=== PATIENT | male | born 1955 | race Caucasian/White ===

== ENCOUNTER → 2017-04-20 | Outpatient (CLI) | payer OTHER ==
[~2017-04-20] MED LIST: AMLO10TA4 PO; AMOX1TAB64 PO; ATOR40TA78 PO; HYDR25TA6 PO; LOSA100T6 PO; METO50TA82 PO; NICO-487 TD; OXYC5TAB3 PO; POLY17PO5 PO; SULF1TAB24 PO
== END | disposition home or self-care (01) ==
LOC: CFH 07:53
PROVIDERS: ATTEND Podiatrist Foot & Ankle Surgery
DX: M19.072 Primary osteoarthritis, left ankle and foot (principal)

== ENCOUNTER 2017-04-26 12:43 | Emergency (ER) | payer OTHER ==
[~2017-04-26] VITALS: Ht 188 cm; Wt 106.5 kg
[2017-04-26 13:26] LABS: BASOPHILS # (AUTO) 0.04 x10^3/uL (0-0.1); BASOPHILS % (AUTO) 1 % (0-1); EOSINOPHILS # (AUTO) 0.36 x10^3/uL (0-0.4); EOSINOPHILS % (AUTO) 5 % (1-7); LYMPHOCYTES % (AUTO) 30 % (22-44); MD NO; MEAN CORPUSCULAR HEMOGLOBIN 33.7 pg (27.5-34.5); MEAN CORPUSCULAR HGB CONC 34.6 g/dL (33.2-36.2); MEAN CORPUSCULAR VOLUME 97.4 fL (81-97); MEAN PLATELET VOLUME 9.9 fL (7.4-10.4); MONOCYTES # (AUTO) 0.86 x10^3/uL (0.2-0.8); MONOCYTES % (AUTO) 12 % (2-9); NEUTROPHILS # (AUTO) 3.89 x10^3/uL (1.8-6.8); NEUTROPHILS % (AUTO) 53 % (42-75); PLATELET COUNT 169 x10^3/uL (130-400); RED BLOOD COUNT 5.66 x10^6/uL (4.38-5.82)
[2017-04-26] MEDS ORDERED: SODIUM CHLORIDE FLUSH 10ML SYR IVF ONE (13:30)
[2017-04-26 13:39] LABS: ALBUMIN 3.6 g/dL (3.4-5.0); ANION GAP 5 mmol/L (5-15); CALCIUM 8.1 mg/dL (8.5-10.1); CHLORIDE 109 mmol/L (98-107)
[2017-04-26 13:53] LABS: ALANINE AMINOTRANSFERASE 68 U/L (12-78); ALKALINE PHOSPHATASE 115 U/L (45-117); BILIRUBIN,TOTAL 0.9 mg/dL (0.2-1.0); TOTAL PROTEIN 7.4 g/dL (6.4-8.2)
[2017-04-26 13:59] LABS: CREATININE 0.92 mg/dL (0.7-1.3)
[2017-04-26 14:35] VITALS: BP 144/76
== END 2017-04-26 15:36 | disposition home or self-care (01) ==
LOC: ED 15:31
DX: I10 Essential (primary) hypertension (principal); E78.5 Hyperlipidemia, unspecified; E11.9 Type 2 diabetes mellitus without complications
CPT/HCPCS: 36415; 80053; 85025; 93005; 99285

== ENCOUNTER → 2017-07-20 | Outpatient (CLI) | payer OTHER | END | disposition home or self-care (01) | LOC: CVU 11:39 | PROVIDERS: ATTEND Nurse Practitioner Family | DX: I37.1 Nonrheumatic pulmonary valve insufficiency (principal); I35.8 Other nonrheumatic aortic valve disorders; I10 Essential (primary) hypertension; I25.2 Old myocardial infarction; Z85.3 Personal history of malignant neoplasm of breast | CPT/HCPCS: 93306 ==

== ENCOUNTER → 2017-09-30 | Outpatient (CLI) | payer OTHER ==
[~2017-09-30] MED LIST changes: +REGADENOSON 0.4 MG/5 ML SYRINGE ONE
== END | disposition home or self-care (01) ==
LOC: CFH 07:32
PROVIDERS: ATTEND Nurse Practitioner Family
DX: I25.10 Atherosclerotic heart disease of native coronary artery without angina pectoris (principal); I25.9 Chronic ischemic heart disease, unspecified
CPT/HCPCS: 78452; 93017; A9502; J2785

== ENCOUNTER → 2017-10-30 | Outpatient (CLI) | payer OTHER ==
[~2017-10-30] MED LIST changes: +DOXA4TAB3 PO; -REGADENOSON 0.4 MG/5 ML SYRINGE ONE; +VALS320T2 PO
[2017-10-30 11:38] LABS: BASOPHILS # (AUTO) 0.04 x10^3/uL (0-0.1); BASOPHILS % (AUTO) 1 % (0-1); EOSINOPHILS # (AUTO) 0.31 x10^3/uL (0-0.4); EOSINOPHILS % (AUTO) 4 % (1-7); LYMPHOCYTES # (AUTO) 1.58 x10^3/uL (1-3.4); LYMPHOCYTES % (AUTO) 22 % (22-44); MD NO; MEAN CORPUSCULAR HEMOGLOBIN 34.2 pg (27.5-34.5); MEAN CORPUSCULAR HGB CONC 34.9 g/dL (33.2-36.2); MEAN PLATELET VOLUME 9.9 fL (7.4-10.4); MONOCYTES # (AUTO) 0.76 x10^3/uL (0.2-0.8); MONOCYTES % (AUTO) 11 % (2-9); NEUTROPHILS # (AUTO) 4.51 x10^3/uL (1.8-6.8); NEUTROPHILS % (AUTO) 63 % (42-75); PLATELET COUNT 139 x10^3/uL (130-400); RED BLOOD COUNT 5.37 x10^6/uL (4.38-5.82); RED CELL DISTRIBUTION WIDTH 13.4 % (9.4-14.8)
[2017-10-30 12:23] LABS: CHLORIDE 107 mmol/L (98-107)
[2017-10-30 12:30] LABS: ALANINE AMINOTRANSFERASE 60 U/L (12-78); ALBUMIN 3.9 g/dL (3.4-5.0); ALKALINE PHOSPHATASE 93 U/L (45-117); ANION GAP 7 mmol/L (5-15); BILIRUBIN,TOTAL 1.2 mg/dL (0.2-1.0); CALCIUM 9.1 mg/dL (8.5-10.1); CREATININE 0.85 mg/dL (0.7-1.3); TOTAL PROTEIN 7.8 g/dL (6.4-8.2)
== END | disposition home or self-care (01) ==
LOC: STAR 10:37
PROVIDERS: ATTEND Internal Medicine Cardiovascular Disease
DX: Z01.818 Encounter for other preprocedural examination (principal)
CPT/HCPCS: 36415; 71046; 80053; 85025

== ENCOUNTER 2017-11-03 06:28 | Day surgery (SDC) | payer OTHER ==
[2017-10-30 11:03] VITALS: BP 140/60
[~2017-11-03] VITALS: Ht 188 cm; Wt 106.8 kg
[~2017-11-03 06:28] MED LIST changes: -LOSA100T6 PO; +LOSA100T7 PO
[2017-11-03] MEDS ORDERED: SODIUM CHLORIDE 0.9% 1,000 ML IV SCH (06:38)
[2017-11-03] MEDS ORDERED: METF500T17 PO (06:51)
[2017-11-03] MEDS ORDERED: FENTANYL PF 100 MCG/2ML ONE (07:56)
[2017-11-03] MEDS ORDERED: MIDAZOLAM 1 MG/ML, 5ML ONE (07:56)
[2017-11-03] MEDS ORDERED: LIDOCAINE 1%, 50ML ONE (08:00)
[2017-11-03] MEDS ORDERED: ISOPROTERENOL 0.2MG/ML, 5ML ONE (08:00)
[2017-11-03] MEDS ORDERED: ACETAMINOPHEN 325 MG TABLET PO PRN (10:00)
[2017-11-03] MEDS ORDERED: ATORVASTATIN 40 MG TABLET PO SCH (21:00)
[2017-11-04] MEDS ORDERED: TEMPLATE NON-FORMULARY MED. (Doxazosin Mesylate** 4 MG) PO SCH (09:00)
[2017-11-04] MEDS ORDERED: AMLODIPINE 10 MG TAB PO SCH (09:00)
[2017-11-04] MEDS ORDERED: METOPROLOL TARTRATE 50 MG TABLET PO SCH (09:00)
[2017-11-04] MEDS ORDERED: VALSARTAN 320 MG PO SCH (09:00)
[2017-11-04] MEDS ORDERED: HYDROCHLOROTHIAZIDE 25 MG TABLET PO SCH (09:00)
[2017-11-04] MEDS ORDERED: metFORMIN 500 MG TABLET PO SCH (09:00)
== END 2017-11-03 14:03 | disposition home or self-care (01) ==
LOC: CACL 06:28
PROVIDERS: ATTEND Internal Medicine Cardiovascular Disease
DX: I49.3 Ventricular premature depolarization (principal); I47.2 Ventricular tachycardia; Z79.82 Long term (current) use of aspirin; E78.5 Hyperlipidemia, unspecified; Z79.899 Other long term (current) drug therapy
CPT/HCPCS: 93654; C1730; C1894; C2630; J3010; J3490; J2250

== ENCOUNTER → 2017-12-30 | Outpatient (CLI) | payer OTHER ==
[~2017-12-30] MED LIST changes: +METF500T17 PO
== END | disposition home or self-care (01) ==
LOC: LAB 11:35
PROVIDERS: ATTEND Nurse Practitioner Family
DX: J18.9 Pneumonia, unspecified organism (principal); R94.2 Abnormal results of pulmonary function studies; R93.89 Abnormal findings on diagnostic imaging of other specified body structures
CPT/HCPCS: 71046

== ENCOUNTER 2018-01-15 13:34 | Emergency (ER) | payer OTHER ==
[~2018-01-15] VITALS: Ht 188 cm; Wt 113.1 kg
[2018-01-15 13:58] VITALS: BP 134/68
[2018-01-15] MEDS ORDERED: HYDROcodone/APAP 5/325 TABLET PO ONE (14:30)
[2018-01-15] MEDS ORDERED: ONDANSETRON ODT 4 MG PO ONE (14:30)
[2018-01-15] MEDS ORDERED: CYCLOBENZAPRINE 10 MG TABLET PO SCH (14:30)
[2018-01-15] MEDS ORDERED: KETOROLAC 30 MG/1 ML IM ONE (14:30)
[2018-01-15] MEDS ORDERED: KETOROLAC 30 MG/1 ML ONE (14:37)
[2018-01-15] MEDS ORDERED: CYCLOBENZAPRINE 10 MG TABLET ONE (14:37)
[2018-01-15] MEDS ORDERED: ONDANSETRON ODT 4 MG ONE (14:37)
[2018-01-15] MEDS ORDERED: HYDROcodone/APAP 5/325 TABLET ONE (14:37)
== END 2018-01-15 15:47 | disposition home or self-care (01) ==
LOC: ED 15:00
DX: S39.012A Strain of muscle, fascia and tendon of lower back, initial encounter (principal); M51.16 Intervertebral disc disorders with radiculopathy, lumbar region; E11.9 Type 2 diabetes mellitus without complications; I10 Essential (primary) hypertension; E78.5 Hyperlipidemia, unspecified; X58.XXXA Exposure to other specified factors, initial encounter; Y93.89 Activity, other specified; Y92.89 Other specified places as the place of occurrence of the external cause; Y99.8 Other external cause status
CPT/HCPCS: 72110; 96372; 99284; J1885; Q0162

== ENCOUNTER 2018-02-10 11:25 | Inpatient (IN) | payer OTHER, MEDICARE ==
[~2018-02-10] VITALS: Ht 188 cm; Wt 109.6 kg
[2018-02-10] MEDS ORDERED: SODIUM CHLORIDE FLUSH 10ML SYR IVF ONE (12:30)
[2018-02-10] MEDS ORDERED: SODIUM CHLORIDE 0.9% 1,000ML IVBOLUS ONE (12:30)
[2018-02-10 12:45] LABS: MEAN CORPUSCULAR HEMOGLOBIN 33.8 pg (27.5-34.5); MEAN CORPUSCULAR HGB CONC 34.7 g/dL (33.2-36.2); MEAN CORPUSCULAR VOLUME 97.6 fL (81-97); MEAN PLATELET VOLUME 8.8 fL (7.4-10.4); PLATELET COUNT 143 x10^3/uL (130-400); RED BLOOD COUNT 5.26 x10^6/uL (4.38-5.82); RED CELL DISTRIBUTION WIDTH 13.4 % (9.4-14.8)
[2018-02-10] MEDS ORDERED: ACETAMINOPHEN 500 MG TABLET ONE (12:48)
[2018-02-10 12:55] LABS: INTERNATIONAL NORMALIZED RATIO 1.24 (0.93-1.1)
[2018-02-10 12:58] LABS: ALBUMIN 3.6 g/dL (3.4-5.0); ANION GAP 8 mmol/L (5-15); CALCIUM 8.9 mg/dL (8.5-10.1); CHLORIDE 100 mmol/L (98-107)
[2018-02-10 13:00] LABS: MD YES
[2018-02-10] MEDS ORDERED: ACETAMINOPHEN 500 MG TABLET PO ONE (13:00)
[2018-02-10 13:02] LABS: ALANINE AMINOTRANSFERASE 48 U/L (12-78); ALKALINE PHOSPHATASE 69 U/L (45-117); BAND#(MANUAL) 0.66 x10^3/uL; BANDS%(MANUAL) 4 % (0-7); BILIRUBIN,TOTAL 1.4 mg/dL (0.2-1.0); CREATININE 1.11 mg/dL (0.7-1.3); LYMPH#(MANUAL) 0.33 x10^3/uL (1-3.4); LYMPHS% (MANUAL) 2 % (22-44); MONOS#(MANUAL) 0.98 x10^3/uL (0.3-2.7); MONOS% (MANUAL) 6 % (2-9); SEG#(MANUAL) 14.43 x10^3/uL (1.8-6.8); SEGS% (MANUAL) 88 % (42-75); TOTAL PROTEIN 7.7 g/dL (6.4-8.2)
[2018-02-10 13:03] LABS: <PLATELET ESTIMATE> ADEQUATE; <PLT MORPHOLOGY> NORMAL PLT MORPH; POLYCHROMASIA 1+
[2018-02-10 13:10] LABS: RAPID INFLUENZA A Negative (Negative); RAPID INFLUENZA B Negative (Negative)
[2018-02-10 13:28] LABS: CULTURE INDICATED? YES; MICROSCOPIC INDICATED
[2018-02-10] MEDS ORDERED: CEFTRIAXONE PMX 2GM/50ML 50 ML ONE (13:53)
[2018-02-10] MEDS ORDERED: CEFTRIAXONE PMX 2GM/50ML 50 ML IV SCH (14:00)
[2018-02-10 14:46] VITALS: BP 126/71
[2018-02-10] MEDS ORDERED: DOCUSATE 100 MG CAPSULE PO PRN (15:30)
[2018-02-10] MEDS ORDERED: BISACODYL 10 MG SUPP PR PRN (15:30)
[2018-02-10] MEDS ORDERED: hydrALAzine 20 MG/ML, 1ML IVPush PRN (15:30)
[2018-02-10] MEDS ORDERED: LABETALOL 5MG/ML, 20ML IVPush PRN (15:30)
[2018-02-10] MEDS ORDERED: POLYETHYLENE GLYCOL 17 GM PACKET PO PRN (15:30)
[2018-02-10] MEDS: SODIUM CHLORIDE 0.9% 1,000 ML IV SCH ×2 (15:59→22:36)
[2018-02-10] MEDS: NICOTINE 14MG/24 HR PATCH.TD24 TD SCH (15:59)
[2018-02-10] MEDS: HEPARIN 5,000 UNITS/ML, 1ML SQ SCH (15:59)
[2018-02-10] MEDS: ALBUTEROL SULFATE 2.5 MG/3 ML NPPB SCH ×2 (16:21→20:40)
[2018-02-10] MEDS ORDERED: DEXTROSE 4 GM TAB.CHEW PO PRN (18:00)
[2018-02-10] MEDS ORDERED: GLUCAGON 1 MG IM PRN (18:00)
[2018-02-10] MEDS ORDERED: DEXTROSE 50%, 50ML SYRINGE IVPush PRN (18:00)
[2018-02-10 18:35] VITALS: BP 163/73
[2018-02-10] MEDS: ACETAMINOPHEN 325 MG TABLET PO PRN (18:39)
[2018-02-10] MEDS: ATORVASTATIN 40 MG TABLET PO SCH (20:08)
[2018-02-10] MEDS: BUDESONIDE 0.5 MG/2 ML INHA NPPB SCH (20:40)
[2018-02-10] MEDS: SODIUM CHLORIDE FLUSH 10ML SYR IVF SCH (21:00)
[2018-02-10] MEDS: INSULIN LISPRO 100 UNITS/ML, PEN SQ-INSULIN SCH (21:00)
[2018-02-11 01:12] VITALS: BP 128/72
[2018-02-11] MEDS: HEPARIN 5,000 UNITS/ML, 1ML SQ SCH ×4 (01:36→20:58)
[2018-02-11] MEDS: ALBUTEROL SULFATE 2.5 MG/3 ML NPPB SCH ×4 (03:05→20:01)
[2018-02-11] MEDS: SODIUM CHLORIDE 0.9% 1,000 ML IV SCH ×3 (05:12→18:00)
[2018-02-11 05:35] LABS: ALBUMIN 2.6 g/dL (3.4-5.0); CHLORIDE 107 mmol/L (98-107)
[2018-02-11 05:37] LABS: MEAN CORPUSCULAR HGB CONC 34.6 g/dL (33.2-36.2); MEAN CORPUSCULAR VOLUME 98.2 fL (81-97); MEAN PLATELET VOLUME 9.3 fL (7.4-10.4); PLATELET COUNT 139 x10^3/uL (130-400); RED BLOOD COUNT 4.71 x10^6/uL (4.38-5.82); RED CELL DISTRIBUTION WIDTH 13.9 % (9.4-14.8)
[2018-02-11 05:48] LABS: ALANINE AMINOTRANSFERASE 34 U/L (12-78); ALKALINE PHOSPHATASE 57 U/L (45-117); ANION GAP 8 mmol/L (5-15); BILIRUBIN,TOTAL 0.9 mg/dL (0.2-1.0); CREATININE 0.89 mg/dL (0.7-1.3); TOTAL PROTEIN 6.3 g/dL (6.4-8.2)
[2018-02-11 06:06] LABS: BASOPHILS # (AUTO) 0.05 x10^3/uL (0-0.1); BASOPHILS % (AUTO) 0 % (0-1); EOSINOPHILS % (AUTO) 0 % (1-7); LYMPHOCYTES # (AUTO) 1.14 x10^3/uL (1-3.4); LYMPHOCYTES % (AUTO) 8 % (22-44); MD SCAN; MONOCYTES # (AUTO) 1.38 x10^3/uL (0.2-0.8); MONOCYTES % (AUTO) 9 % (2-9); NEUTROPHILS # (AUTO) 12.29 x10^3/uL (1.8-6.8); NEUTROPHILS % (AUTO) 83 % (42-75)
[2018-02-11] MEDS: INSULIN LISPRO 100 UNITS/ML, PEN SQ-INSULIN SCH ×4 (07:00→21:00)
[2018-02-11] MEDS: SODIUM CHLORIDE FLUSH 10ML SYR IVF SCH ×2 (09:00→21:00)
[2018-02-11] MEDS: TEMPLATE NON-FORMULARY MED. (Doxazosin Mesylate** 4 MG) PO SCH (09:00)
[2018-02-11] MEDS: VALSARTAN 320 MG PO SCH (09:00)
[2018-02-11 09:33] VITALS: BP 121/69
[2018-02-11] MEDS: BUDESONIDE 0.5 MG/2 ML INHA NPPB SCH ×2 (09:38→20:01)
[2018-02-11] MEDS: AMLODIPINE 10 MG TAB PO SCH (12:59)
[2018-02-11] MEDS: METOPROLOL TARTRATE 50 MG TABLET PO SCH (13:00)
[2018-02-11 13:40] VITALS: BP 126/69
[2018-02-11] MEDS: CEFTRIAXONE PMX 1GM/50ML 50 ML IV SCH (18:00)
[2018-02-11] MEDS: NICOTINE 14MG/24 HR PATCH.TD24 TD SCH (18:00)
[2018-02-11 19:36] VITALS: BP 118/67
[2018-02-11] MEDS: ATORVASTATIN 40 MG TABLET PO SCH (20:57)
[2018-02-11] MEDS ORDERED: HYDROcodone/APAP 5/325 TABLET PO ONE (21:30)
[2018-02-12 00:30] VITALS: BP 124/82
[2018-02-12] MEDS: ALBUTEROL SULFATE 2.5 MG/3 ML NPPB SCH ×4 (02:55→20:22)
[2018-02-12] MEDS: SODIUM CHLORIDE 0.9% 1,000 ML IV SCH ×3 (03:54→20:30)
[2018-02-12] MEDS: ACETAMINOPHEN 325 MG TABLET PO PRN ×2 (05:15→17:07)
[2018-02-12] MEDS: HEPARIN 5,000 UNITS/ML, 1ML SQ SCH ×3 (05:21→20:31)
[2018-02-12 05:46] LABS: BASOPHILS # (AUTO) 0.07 x10^3/uL (0-0.1); BASOPHILS % (AUTO) 1 % (0-1); EOSINOPHILS # (AUTO) 0.09 x10^3/uL (0-0.4); EOSINOPHILS % (AUTO) 1 % (1-7); LYMPHOCYTES # (AUTO) 1.39 x10^3/uL (1-3.4); LYMPHOCYTES % (AUTO) 13 % (22-44); MD NO; MEAN CORPUSCULAR HEMOGLOBIN 33.7 pg (27.5-34.5); MEAN CORPUSCULAR HGB CONC 34.4 g/dL (33.2-36.2); MEAN CORPUSCULAR VOLUME 97.9 fL (81-97); MEAN PLATELET VOLUME 9.3 fL (7.4-10.4); MONOCYTES % (AUTO) 12 % (2-9); NEUTROPHILS # (AUTO) 7.85 x10^3/uL (1.8-6.8); NEUTROPHILS % (AUTO) 73 % (42-75); PLATELET COUNT 154 x10^3/uL (130-400); RED BLOOD COUNT 4.41 x10^6/uL (4.38-5.82)
[2018-02-12 05:50] LABS: CHLORIDE 112 mmol/L (98-107)
[2018-02-12 05:55] LABS: ALBUMIN 2.3 g/dL (3.4-5.0); ANION GAP 7 mmol/L (5-15); CREATININE 0.75 mg/dL (0.7-1.3)
[2018-02-12] MEDS: INSULIN LISPRO 100 UNITS/ML, PEN SQ-INSULIN SCH ×4 (07:00→20:49)
[2018-02-12 07:23] VITALS: BP 121/71
[2018-02-12] MEDS: AMLODIPINE 10 MG TAB PO SCH (08:02)
[2018-02-12] MEDS: METOPROLOL TARTRATE 50 MG TABLET PO SCH (08:02)
[2018-02-12] MEDS: SODIUM CHLORIDE FLUSH 10ML SYR IVF SCH ×2 (08:03→20:30)
[2018-02-12] MEDS: TEMPLATE NON-FORMULARY MED. (Doxazosin Mesylate** 4 MG) PO SCH (09:00)
[2018-02-12] MEDS: VALSARTAN 320 MG PO SCH (09:00)
[2018-02-12] MEDS: BUDESONIDE 0.5 MG/2 ML INHA NPPB SCH ×2 (10:31→20:22)
[2018-02-12 12:46] VITALS: BP 103/63
[2018-02-12] MEDS ORDERED: CALCIUM CARBONATE 500 MG TAB.CHEW PO PRN (16:30)
[2018-02-12] MEDS: CEFTRIAXONE PMX 1GM/50ML 50 ML IV SCH (17:01)
[2018-02-12] MEDS: NICOTINE 14MG/24 HR PATCH.TD24 TD SCH (17:01)
[2018-02-12 19:51] VITALS: BP 136/70
[2018-02-12] MEDS: ATORVASTATIN 40 MG TABLET PO SCH (20:31)
[2018-02-13 01:42] VITALS: BP 146/75
[2018-02-13] MEDS: ALBUTEROL SULFATE 2.5 MG/3 ML NPPB SCH ×4 (02:26→20:10)
[2018-02-13] MEDS: SODIUM CHLORIDE 0.9% 1,000 ML IV SCH ×3 (03:12→17:44)
[2018-02-13] MEDS: HEPARIN 5,000 UNITS/ML, 1ML SQ SCH ×3 (05:00→20:28)
[2018-02-13 05:12] LABS: ALBUMIN 2.5 g/dL (3.4-5.0); ANION GAP 7 mmol/L (5-15); CALCIUM 7.9 mg/dL (8.5-10.1); CHLORIDE 113 mmol/L (98-107); CREATININE 0.67 mg/dL (0.7-1.3)
[2018-02-13 05:25] LABS: BASOPHILS # (AUTO) 0.08 x10^3/uL (0-0.1); BASOPHILS % (AUTO) 1 % (0-1); EOSINOPHILS # (AUTO) 0.24 x10^3/uL (0-0.4); EOSINOPHILS % (AUTO) 3 % (1-7); LYMPHOCYTES # (AUTO) 1.68 x10^3/uL (1-3.4); LYMPHOCYTES % (AUTO) 21 % (22-44); MD NO; MEAN CORPUSCULAR HGB CONC 34.5 g/dL (33.2-36.2); MEAN CORPUSCULAR VOLUME 98.4 fL (81-97); MONOCYTES # (AUTO) 0.74 x10^3/uL (0.2-0.8); MONOCYTES % (AUTO) 9 % (2-9); NEUTROPHILS # (AUTO) 5.37 x10^3/uL (1.8-6.8); NEUTROPHILS % (AUTO) 66 % (42-75); PLATELET COUNT 172 x10^3/uL (130-400); RED BLOOD COUNT 4.42 x10^6/uL (4.38-5.82); RED CELL DISTRIBUTION WIDTH 13.4 % (9.4-14.8)
[2018-02-13] MEDS: OMEPRAZOLE 20 MG CAPSULE.DR PO SCH (06:08)
[2018-02-13] MEDS: INSULIN LISPRO 100 UNITS/ML, PEN SQ-INSULIN SCH ×4 (07:00→20:33)
[2018-02-13 07:23] VITALS: BP 133/73
[2018-02-13] MEDS: VALSARTAN 320 MG PO SCH (09:00)
[2018-02-13] MEDS: TEMPLATE NON-FORMULARY MED. (Doxazosin Mesylate** 4 MG) PO SCH (09:00)
[2018-02-13] MEDS: SODIUM CHLORIDE FLUSH 10ML SYR IVF SCH ×2 (09:00→21:33)
[2018-02-13] MEDS: BUDESONIDE 0.5 MG/2 ML INHA NPPB SCH ×2 (09:50→20:10)
[2018-02-13] MEDS: METOPROLOL TARTRATE 50 MG TABLET PO SCH (10:28)
[2018-02-13] MEDS: TAMSULOSIN 0.4 MG CAP.ER.24H PO SCH (10:29)
[2018-02-13] MEDS: AMLODIPINE 10 MG TAB PO SCH (10:29)
[2018-02-13] MEDS ORDERED: CEFTRIAXONE PMX 2GM/50ML 50 ML IV SCH (10:30)
[2018-02-13 12:33] VITALS: BP 114/68
[2018-02-13] MEDS: LEVOFLOXACIN/PMX 750MG/150ML 150 ML IV SCH (16:41)
[2018-02-13] MEDS: NICOTINE 14MG/24 HR PATCH.TD24 TD SCH (17:43)
[2018-02-13 19:56] VITALS: BP 127/72
[2018-02-13] MEDS: ATORVASTATIN 40 MG TABLET PO SCH (20:27)
[2018-02-14] MEDS: SODIUM CHLORIDE 0.9% 1,000 ML IV SCH ×4 (00:17→20:27)
[2018-02-14 01:42] VITALS: BP 132/78
[2018-02-14] MEDS: ALBUTEROL SULFATE 2.5 MG/3 ML NPPB SCH ×4 (03:25→20:54)
[2018-02-14 05:12] LABS: BASOPHILS # (AUTO) 0.09 x10^3/uL (0-0.1); BASOPHILS % (AUTO) 1 % (0-1); EOSINOPHILS # (AUTO) 0.18 x10^3/uL (0-0.4); EOSINOPHILS % (AUTO) 2 % (1-7); LYMPHOCYTES # (AUTO) 1.48 x10^3/uL (1-3.4); LYMPHOCYTES % (AUTO) 20 % (22-44); MD NO; MEAN CORPUSCULAR HEMOGLOBIN 33.8 pg (27.5-34.5); MEAN CORPUSCULAR HGB CONC 34.8 g/dL (33.2-36.2); MEAN CORPUSCULAR VOLUME 97.2 fL (81-97); MEAN PLATELET VOLUME 8.1 fL (7.4-10.4); MONOCYTES # (AUTO) 0.72 x10^3/uL (0.2-0.8); MONOCYTES % (AUTO) 10 % (2-9); NEUTROPHILS # (AUTO) 5.11 x10^3/uL (1.8-6.8); NEUTROPHILS % (AUTO) 68 % (42-75); PLATELET COUNT 180 x10^3/uL (130-400); RED BLOOD COUNT 4.51 x10^6/uL (4.38-5.82); RED CELL DISTRIBUTION WIDTH 13.4 % (9.4-14.8)
[2018-02-14 05:27] LABS: ALBUMIN 2.6 g/dL (3.4-5.0); ANION GAP 6 mmol/L (5-15); CALCIUM 8.2 mg/dL (8.5-10.1); CHLORIDE 110 mmol/L (98-107); CREATININE 0.66 mg/dL (0.7-1.3)
[2018-02-14] MEDS: OMEPRAZOLE 20 MG CAPSULE.DR PO SCH (05:41)
[2018-02-14] MEDS: HEPARIN 5,000 UNITS/ML, 1ML SQ SCH ×4 (05:41→22:49)
[2018-02-14] MEDS: INSULIN LISPRO 100 UNITS/ML, PEN SQ-INSULIN SCH ×4 (07:00→19:22)
[2018-02-14 08:06] VITALS: BP 146/79
[2018-02-14] MEDS ORDERED: ACETAMINOPHEN 325 MG TABLET PO PRN (08:30)
[2018-02-14] MEDS: VALSARTAN 320 MG PO SCH (09:00)
[2018-02-14] MEDS: SODIUM CHLORIDE FLUSH 10ML SYR IVF SCH (09:00)
[2018-02-14] MEDS: BUDESONIDE 0.5 MG/2 ML INHA NPPB SCH ×2 (09:00→20:54)
[2018-02-14] MEDS: TEMPLATE NON-FORMULARY MED. (Doxazosin Mesylate** 4 MG) PO SCH (09:00)
[2018-02-14] MEDS: METOPROLOL TARTRATE 50 MG TABLET PO SCH (09:58)
[2018-02-14] MEDS: LACTOBACILLUS CHEW TABLET PO SCH ×3 (09:58→20:27)
[2018-02-14] MEDS: CARVEDILOL 6.25 MG TABLET PO SCH ×2 (09:59→16:56)
[2018-02-14] MEDS: AMLODIPINE 10 MG TAB PO SCH (09:59)
[2018-02-14] MEDS: TAMSULOSIN 0.4 MG CAP.ER.24H PO SCH (10:00)
[2018-02-14 12:26] VITALS: BP 134/73
[2018-02-14] MEDS: LEVOFLOXACIN/PMX 750MG/150ML 150 ML IV SCH (15:23)
[2018-02-14] MEDS: NICOTINE 14MG/24 HR PATCH.TD24 TD SCH (15:24)
[2018-02-14 19:22] VITALS: BP 150/72
[2018-02-14] MEDS: ATORVASTATIN 40 MG TABLET PO SCH (20:27)
[2018-02-15 01:44] VITALS: BP 147/77
[2018-02-15] MEDS: ALBUTEROL SULFATE 2.5 MG/3 ML NPPB SCH ×2 (02:25→07:55)
[2018-02-15] MEDS: OMEPRAZOLE 20 MG CAPSULE.DR PO SCH (04:43)
[2018-02-15] MEDS: CARVEDILOL 6.25 MG TABLET PO SCH (04:43)
[2018-02-15] MEDS: INSULIN LISPRO 100 UNITS/ML, PEN SQ-INSULIN SCH ×2 (07:00→11:00)
[2018-02-15 07:26] VITALS: BP 150/78
[2018-02-15] MEDS: BUDESONIDE 0.5 MG/2 ML INHA NPPB SCH (07:55)
[2018-02-15] MEDS: TAMSULOSIN 0.4 MG CAP.ER.24H PO SCH (08:28)
[2018-02-15] MEDS: VALSARTAN 320 MG PO SCH (08:28)
[2018-02-15] MEDS: AMLODIPINE 10 MG TAB PO SCH (08:28)
[2018-02-15] MEDS: TEMPLATE NON-FORMULARY MED. (Doxazosin Mesylate** 4 MG) PO SCH (08:28)
[2018-02-15] MEDS: METOPROLOL TARTRATE 50 MG TABLET PO SCH (08:29)
[2018-02-15] MEDS: LACTOBACILLUS CHEW TABLET PO SCH (08:33)
[2018-02-15] MEDS: SODIUM CHLORIDE 0.9% 1,000 ML IV SCH (08:33)
[2018-02-15] MEDS ORDERED: AMLO2.5T3 PO (09:44)
[2018-02-15] MEDS ORDERED: CARV6.2512 PO (09:44)
[2018-02-15] MEDS ORDERED: NICO-486 TD (09:44)
[2018-02-15] MEDS ORDERED: ACID1TAB7 PO (09:44)
[2018-02-15] MEDS ORDERED: LEVO750T6 PO (09:48)
== END 2018-02-15 12:13 | disposition home or self-care (01) | DRG 871 ==
LOC: ED 12:05 → EDIP 13:55 → 3NE 14:41 → DCLOUNGE 02-15 12:00
PROVIDERS: ADMIT Internal Medicine; ATTEND Internal Medicine
DX: A41.9 Sepsis, unspecified organism (principal); G93.41 Metabolic encephalopathy; J96.01 Acute respiratory failure with hypoxia; A02.9 Salmonella infection, unspecified; N10 Acute pyelonephritis; E11.42 Type 2 diabetes mellitus with diabetic polyneuropathy; I25.10 Atherosclerotic heart disease of native coronary artery without angina pectoris; E66.9 Obesity, unspecified; Z68.31 Body mass index [BMI] 31.0-31.9, adult; E78.5 Hyperlipidemia, unspecified; I10 Essential (primary) hypertension; N20.0 Calculus of kidney; Z72.0 Tobacco use; Z71.6 Tobacco abuse counseling
CPT/HCPCS: 36415; 84145; 87400; 99285; J7613; J7626; 71045; 76770; 80048; 80053; 81001; 82040; 82962; 83036; 83605; 83735; 84443; 85025; 85610; 85730; 87040; 87077; 87086; 87184; 87186; 94640; 96374; G0378; J0696; J1644; J1956; J7030

== ENCOUNTER → 2018-02-17 | Outpatient (CLI) | payer OTHER ==
[~2018-02-17] MED LIST changes: +ACID1TAB7 PO; +AMLO2.5T3 PO; +CARV6.2512 PO; +LEVO750T6 PO; +NICO-486 TD
== END | disposition home or self-care (01) ==
LOC: CFH 07:21
PROVIDERS: ATTEND Nurse Practitioner
DX: M51.15 Intervertebral disc disorders with radiculopathy, thoracolumbar region (principal); M47.26 Other spondylosis with radiculopathy, lumbar region; M48.55XD Collapsed vertebra, not elsewhere classified, thoracolumbar region, subsequent encounter for fracture with routine healing; M48.05 Spinal stenosis, thoracolumbar region
CPT/HCPCS: 72114; 72148

== ENCOUNTER 2018-04-13 08:39 | Outpatient (CLI) | payer OTHER ==
[~2018-04-13 08:39] MED LIST changes: -AMLO2.5T3 PO; +AMLO2.5T5 PO; +LOSA100T14 PO; -LOSA100T7 PO
== END 2018-04-13 23:59 | disposition home or self-care (01) ==
LOC: CFH 08:39
PROVIDERS: ATTEND Anesthesiology
DX: N20.0 Calculus of kidney (principal); N39.0 Urinary tract infection, site not specified; N62 Hypertrophy of breast; D73.89 Other diseases of spleen; N40.0 Benign prostatic hyperplasia without lower urinary tract symptoms; K40.90 Unilateral inguinal hernia, without obstruction or gangrene, not specified as recurrent; M47.9 Spondylosis, unspecified
CPT/HCPCS: 74176

== ENCOUNTER 2019-01-05 09:33 | Outpatient (CLI) | payer OTHER | END 2019-01-05 23:59 | disposition home or self-care (01) | LOC: CFH 09:33 | PROVIDERS: ATTEND Internal Medicine Cardiovascular Disease | DX: I35.8 Other nonrheumatic aortic valve disorders (principal); I10 Essential (primary) hypertension; E78.5 Hyperlipidemia, unspecified; I25.2 Old myocardial infarction; F17.200 Nicotine dependence, unspecified, uncomplicated; Z82.49 Family history of ischemic heart disease and other diseases of the circulatory system; Z82.5 Family history of asthma and other chronic lower respiratory diseases | CPT/HCPCS: 93306 ==

== ENCOUNTER → 2019-02-04 | Outpatient (CLI) | payer OTHER | END | disposition home or self-care (01) | LOC: CFH 10:33 | PROVIDERS: ATTEND Nurse Practitioner Family | DX: M47.814 Spondylosis without myelopathy or radiculopathy, thoracic region (principal) | CPT/HCPCS: 71046 ==

== ENCOUNTER → 2020-09-24 | Outpatient (CLI) | payer OTHER ==
[~2020-09-24] MED LIST changes: -NICO-487 TD; +NICO-587 TD; -OXYC5TAB3 PO; +OXYC5TAB98 PO; +SULF-23 PO; -SULF1TAB24 PO
== END | disposition home or self-care (01) ==
LOC: CFH 10:57
PROVIDERS: ATTEND Nurse Practitioner Family
DX: M47.812 Spondylosis without myelopathy or radiculopathy, cervical region (principal); M48.02 Spinal stenosis, cervical region; M40.292 Other kyphosis, cervical region
CPT/HCPCS: 72050